=== PATIENT | female | born 1960 | race Asian ===

== ENCOUNTER → 2018-03-17 | Outpatient (CLI) | payer BC ==
[~2018-03-17] VITALS: Ht 160 cm; Wt 59.0 kg
== END | disposition home or self-care (01) ==
LOC: Rad HDHVI 08:02
PROVIDERS: ATTEND Internal Medicine Cardiovascular Disease
DX: I10 Essential (primary) hypertension (principal); E11.9 Type 2 diabetes mellitus without complications; I20.0 Unstable angina
CPT/HCPCS: 78452; 93017; 93306; 96374; A9500

== ENCOUNTER → 2024-10-27 | Outpatient (CLI) | payer BC ==
--- NOTE | 2024-10-27 12:26 | DVH ---
US US GUIDANCE FOR NEEDLE PLACEME, HISTORY: SOLITARY CYST IN THE LEFT BREAST PROCEDURE: Informed consent was obtained. The patient was positioned supine on the table, and limited ultrasound was performed of the left breast. The skin overlying the biopsy site was prepped with ch lorhexidine which was allowed to dry. Time out was performed. The entry site was anesthetized with 1% lidocaine. A 19 gauge Temno needle was advanced into the mass. Multiple core biopsy samples were obt ained using the 19 gauge biopsy needle. The samples were sent to formalin to pathology for analysis. A marker clip was deployed in the mass. Imaging through the biopsy site was performed. No immediate c omplication was identified. FINDINGS: Complex breast lesion biopsy due to small size of the breast lesion which was superfical lo cated and adjacent to a breast implant. Intra-procedural images show the biopsy needle at the lesion. No significant post biopsy hemorrhage is identified. IMPRESSION: Complex breast lesion biopsy due to small size of the breast lesion which was superfical located and adjacent to a breast implant. Pathology results pending.
== END | disposition home or self-care (01) ==
LOC: XYW 08:29
PROVIDERS: ATTEND Surgery
DX: N60.32 Fibrosclerosis of left breast (principal); N60.02 Solitary cyst of left breast; Z98.82 Breast implant status
CPT/HCPCS: 19083; 88305; A4648; 76942

== ENCOUNTER → 2024-12-22 | Day surgery (SDC) | payer BC, MEDICARE ==
[2024-12-20 09:32] LABS: Basophils # (auto) 0 10 ^3/uL (0-0.2); Basophils % (auto) 0.5 % (0.0-2.0); Eosinophils # (auto) 0.2 10 ^3/uL (0-0.8); Eosinophils % (auto) 2.6 % (0.0-7.0); Hematocrit 46.5 % (36.0-46.0); Hemoglobin 15.8 g/dL (12.2-16.2); Lymphocytes # (auto) 2.1 10 ^3/uL (0.4-5.4); Lymphocytes % (auto) 31.2 % (10.0-50.0); Mean Corpuscular Hemoglobin 28.9 pg (28.0-32.0); Mean Corpuscular Hgb Conc. 34.1 g/dL (32.0-36.0); Monocytes # (auto) 0.4 10 ^3/uL (0-1.3); Monocytes % (auto) 5.4 % (0.0-12.0); Neutrophils % (auto) 60.3 % (37.0-80.0); Platelet Count (auto) 287 10^3/uL (140-450); Red Blood Cells 5.47 10^6/uL (4.0-5.20); Red Cell Distribution Width 14.6 % (11.8-14.3); White Blood Cell 6.6 10^3/uL (4.4-10.8)
[2024-12-20 09:35] LABS: Urine Bacteria FEW /hpf (None Seen); Urine Blood Negative /uL (Negative); Urine Clarity Turbid (Clear); Urine Color Yellow (Yellow); Urine Protein, UAD TRACE (Negative); Urine Specific Gravity 1.017 (1.001-1.035); Urine Squamous Epithelial Cell FEW /hpf (<5); Urine Urobilinogen Normal (Negative); Urine WBC 5 /HPF (0-5)
[2024-12-20 09:58] LABS: INR 0.95 (0.9-1.15); Partial Thromboplastin Time 27.7 SEC (24.5-34.5); Prothrombin Time 10.1 sec (9.3-11.8)
[2024-12-20 10:00] LABS: Alanine Aminotransferase 18 U/L (7-40); Albumin 4.6 g/dL (3.2-4.8); Alkaline Phosphatase 54 U/L (46-116); Anion Gap 6 (5-15); Aspartate Aminotransferase 15 U/L (13-40); BUN/Creatinine Ratio 18.5 (10.0-20.0); Blood Urea Nitrogen 15 mg/dL (9-23); Chloride 104 mmol/L (98-107); Sodium 142 mmol/L (136-145); Total Protein 7.7 g/dL (5.7-8.2)
[2024-12-20 10:01] LABS: Bilirubin, Total 0.5 mg/dL (0.2-1.0); Calcium 10.7 mg/dL (8.7-10.4); Carbon Dioxide 32 mmol/L (20-31); Glucose 117 mg/dL (74-106)
[~2024-12-22] VITALS: Ht 160 cm; Wt 49.9 kg
[~2024-12-22] MED LIST: ATEN-60 PO; GLYCOPYRROLATE 0.2 MG/ML 1ML VIAL ONE; HYDROmorphone HCL 2 MG/ML VL/or syr IV PRN; METF-370 PO; ONDANSETRON HCL 4 MG/2 ML VIAL ONE; PROPOFOL 10 MG/ML 20 ML IV ONE; fentaNYL CITRATE 100 MCG/2 ML VL ONE
[2024-12-22 13:18] VITALS: PULSE 80; RESP 17; O2SAT 100
--- NOTE | 2024-12-26 13:34 | DVHOP2 ---
Operative Report DATE OF OPERATION: 12/26/24 PROCEDURE: Diagnostic Colonoscopy. PREOPERATIVE INDICATION: The patient is a 64 -year-old female undergoing colonoscopy for surveillance with personal history of colon polyps POSTOPERATIVE DIAGNOSES: 1. Patient had trace to 1+ internal hemorrhoids otherwise essentially completely normal colonoscopy examination up to the cecum PROCEDURE PERFORMED BY: Mena Adamson M.D. SCOPE: Olympus videocolonoscope. ASA CLASS: 3. PREOPERATIVE MEDICATIONS: Mac Dr. Gill ridley PROCEDURE IN DETAIL: After obtaining an informed consent, the patient was placed on left lateral decubitus position. She was then sedated with the above medications. A rectal examination was performed that was normal. The colonoscope was then passed through the anus into the rectosigmoid and through the descending, transverse, and ascending colon up to the cecum with visualization of the appendiceal orifice, base of the cecum and the ileocecal valve. The colonoscope was then withdrawn. No masses or colitis was noted. There was no clear-cut diverticular disease. On retroflexion and straight on view the patient had trace to 1+ internal hemorrhoids The patient tolerated the procedure well without difficulty. WITHDRAWAL TIME: 7 minutes QUALITY OF THE PREP: [place] Bowel Prep score: 9. COMPLICATIONS : None SPECIMENS: None DISPOSITION: Stable D/C to home PLAN: 1. Repeat colonoscopy in five years 2. Resume GI soft diet advance as tolerated 3. Outpatient follow up with me in 2-4 weeks to review results and discuss further management MENA ADAMSON MD December 26, 2024 13:34
== END | disposition home or self-care (01) ==
LOC: GI 09:28 → EEVIPCON 11:00
PROVIDERS: ATTEND Internal Medicine Gastroenterology
DX: Z12.11 Encounter for screening for malignant neoplasm of colon (principal); I10 Essential (primary) hypertension; E11.9 Type 2 diabetes mellitus without complications; K64.0 First degree hemorrhoids; Z86.0100 Personal history of colon polyps, unspecified
CPT/HCPCS: 36415; 45378; 80053; 81001; 82962; 85025; 85610; 85730; J2405; J2704; J3010; J7030